=== PATIENT | male | born 1985 | race Two or more races ===

== ENCOUNTER 2019-02-01 21:14 | Emergency (ER) | payer BC, OTHER ==
[~2019-02-01] VITALS: Ht 170.2 cm; Wt 113.4 kg
[2019-02-01 21:31] VITALS: BP 142/85
[2019-02-01] MEDS ORDERED: HYDROcodone-ACET 10/325MG TAB PO ONE (23:45)
[2019-02-01] MEDS ORDERED: BACLOFEN 10 MG TAB PO ONE (23:45)
== END 2019-02-02 00:20 | disposition home or self-care (01) ==
LOC: EDBD 21:14 → ER 21:14 → EDUNIT# 21:14 → ER 02-02 00:15
DX: M62.838 Other muscle spasm (principal); V49.49XA Driver injured in collision with other motor vehicles in traffic accident, initial encounter; Y93.89 Activity, other specified; Y99.8 Other external cause status; Y92.410 Unspecified street and highway as the place of occurrence of the external cause
CPT/HCPCS: 70450; 72125; 72131